=== PATIENT | female | born 1990 | race Caucasian/White ===

== ENCOUNTER 2023-09-22 20:02 | Emergency (ER) | payer OTHER ==
[~2023-09-22] VITALS: Ht 170.2 cm; Wt 77.1 kg
[2023-09-22 20:05] VITALS: BP 135/79; PULSE 96; RESP 20; TEMP 97.7; O2SAT 100
[2023-09-22 20:30] VITALS: O2SAT 100
[2023-09-22] MEDS ORDERED: ATA25 PO (21:29)
[2023-09-22] MEDS ORDERED: IBUP-2213 PO (21:29)
[2023-09-22] MEDS: KETOROLAC 60 MG/2 ML VIAL IM ONE (21:42)
== END 2023-09-22 21:42 | disposition home or self-care (01) ==
LOC: MED 20:02
DX: R07.9 Chest pain, unspecified (principal); F41.9 Anxiety disorder, unspecified; Z79.899 Other long term (current) drug therapy
CPT/HCPCS: 93005; 96372; 99283; J1885

== ENCOUNTER 2023-12-04 13:25 | Emergency (ER) | payer OTHER ==
[~2023-12-04] VITALS: Ht 170.2 cm; Wt 86.2 kg
[~2023-12-04 13:25] MED LIST: ATA25 PO; IBUP-2213 PO
[2023-12-04 13:27] VITALS: BP 146/83; PULSE 106; RESP 18; TEMP 97.8; O2SAT 98
[2023-12-04] MEDS: LORazepam 1 MG TAB PO ONE (14:00)
[2023-12-04 14:18] VITALS: O2SAT 100
== END 2023-12-04 15:15 | disposition home or self-care (01) ==
LOC: MED 13:25
DX: F41.0 Panic disorder [episodic paroxysmal anxiety] (principal); Z79.899 Other long term (current) drug therapy
CPT/HCPCS: 71045; 81025; 82948; 93005; 99283; Q0092; 99285